=== PATIENT | female | born 1940 | race Caucasian/White ===

== ENCOUNTER 2020-12-03 08:51 | Outpatient (RCR) | payer MEDICARE, SELFPAY | END 2020-12-03 23:59 | LOC: IMMUN 08:51 | PROVIDERS: PCP Family Medicine; Referring Provider Family Medicine; Visit Provider Family Medicine | DX: Z23 Encounter for immunization (principal) | CPT/HCPCS: 0011A; 0012A ==

== ENCOUNTER 2022-02-28 10:25 | Emergency (ER) | payer MEDICARE, SELFPAY ==
[2022-02-28 10:26] VITALS: BP 171/99; PULSE 86; RESP 20; TEMP 36.6; O2SAT 100; BMI 21.7
--- NOTE | 2022-02-28 10:40 | EKG12_ITS ---
Test Reason : DIZZINESS Blood Pressure : / mmHG Vent. Rate : 072 BPM Atrial Rate : 072 BPM P-R Int : 174 ms QRS Dur : 092 ms QT Int : 408 ms P-R-T Axes : 064 007 067 degrees QTc Int : 446 ms Normal sinus rhythm Biatrial enlargement Nonspecific T wave abnormality Abnormal ECG Confirmed by BK TROTTER, RUMA ([id number]), scientific publications editor TARAN LEDBETTER ([id number]) on 03/01/2022 9:48:07 AM Referred By: OBED Confirmed By:RUMA BOURGEOIS MD
--- NOTE | 2022-02-28 10:41 | EDS_ITS ---
HPI History of Present Illness Chief Complaint: Dizziness Informant: patient Narrative Narrative: 81-year-old female brought to the emergency department for the evaluation of dizziness. Patient states that yesterday afternoon she laid down on the ground with a blanket by the heat register to get warm. When she went to get up she immediately felt that she was dizzy and that she was spinning. She felt very nauseated and had dry heaves. Patient states she pretty much just went back to bed. She reports that whenever she turns her head from side to side or attempts to get up from a lying position she gets dizzy again. If she is just laying flat and not moving she states she feels better. She has never had vertigo. She notes no ringing in her ears or change in hearing. No vision arm leg or speech symptoms. She denies any headache. [facility] Medical History (Updated 02/28/22 @ 12:[address] Israel Gomez DO) Depression with anxiety Dizziness Hypertension Home Medications amlodipine 5 mg PO DAILY 02/28/22 [History Last Taken Unknown] diazepam 5 mg PO Q8 PRN #10 tab 02/28/22 [Rx Last Taken Unknown] metoprolol tartrate 50 mg PO DAILY 02/28/22 [History Last Taken Unknown] ondansetron 4 mg PO Q6H PRN PRN #10 tab 02/28/22 [Rx Last Taken Unknown] paroxetine HCl 30 mg PO DAILY 02/28/22 [History Last Taken Unknown] tolterodine 4 mg PO DAILY 02/28/22 [History Last Taken Unknown] Allergy/AdvReac Type Severity Reaction Status Date / Time ibuprofen [From Motrin] Allergy Hives Verified 02/28/22 10:28 NSAIDS (Non-Steroidal Allergy Hives Verified 02/28/22 10:28 Anti-Inflamma Social History (Updated 02/28/22 @ 10:[address] Israel Gomez DO) household members: spouse current gender identity: female Smoking Status: Never smoker ROS ROS ED Constitutional Constitutional ED: Denies chills or weight loss Eyes Eyes: Denies change in vision or diplopia ENT ENT ED: Denies ear pain, rhinorrhea or sore throat Cardiovascular Cardiovascular: Denies chest pain, orthopnea, palpitations or racing heartbeat Respiratory/Chest Respiratory/Chest: Denies cough, dyspnea or orthopnea Gastrointestinal Gastrointestinal: Reports nausea; Denies abdominal pain, diarrhea or vomiting Genitourinary Genitourinary ED: Denies dysuria, hematuria or urinary frequency Musculoskeletal Musculoskeletal: Denies arthralgias or myalgias Integumentary Denies abscess or rash Neurologic Neurologic: Reports other Details: Dizziness ; Denies headache(s) or weakness Psychiatric Psychiatric: Denies anxiety, depression, suicidal ideation or suicidal thoughts Endocrine Endocrinology: Denies polydipsia, polyphagia or polyuria Allergic/Immunologic Allergic/Immunologic ED: Denies mouth swelling, tongue swelling or urticaria EXAM Physical Exam Const Vital Signs: 02/28/22 10:26 Temperature 97.9 F Temperature Source Temporal Pulse Rate 86 Respiratory Rate 20 H Blood Pressure 171/99 H Blood Pressure Mean 123 Pulse Ox 100 Oxygen Delivery Method Room Air Positive well nourished and well developed General Appearance ED: well developed HEENT Reports normocephalic, head/scalp atraumatic, TM's clear and moist mucous membranes Negative for trauma Tympanic Membrane ED: Yes TM's clear Eyes PERRL and EOMs intact bilaterally Neck no lymphadenopathy, supple and no JVD Resp normal respiratory effort and clear to auscultation bilaterally Cardio regular rate, regular rhythm and no murmurs GI normal to inspection, nondistended, normoactive bowel sounds and non-tender Palpation: soft Back/Spine no CVA tenderness and normal ROM Extremity normal to inspection General Extremety ED: Negative for edema General Extremity: Negative for edema Neuro oriented x3 and CN's II-XII intact bilaterally Neuro Narrative: I appreciate no nystagmus. The patient is not symptomatic when turning her head right or left. She is symptomatic when she attempts to sit up. Sensorium / Orientation: alert Motor Exam: strength 5/5 throughout Psych mental status grossly normal Mood & Affect: Negative for depressed or tearful Skin no rashes or lesions noted and no wounds MDM MDM MDM Narrative Medical decision making narrative: CBC CMP showed a creatinine 1.12. CT of the brain is read as no acute. Patient received Zofran fluids and Valium. Repeat examination finds the patient to be asymptomatic. She is able to ambulate without any difficulties. Patient at this point will be discharged home Lab Data Attestation: I reviewed the patient's lab results. Labs: Laboratory Results - last 24 hr 02/28/22 02/28/22 10:55 10:55 WBC 10.3 RBC 4.78 Hgb 14.6 Hct 44.2 MCV 92.5 MCH 30.5 MCHC 33.0 RDW Std Deviation 45.1 H RDW Coeff of Mariya 13.2 Plt Count 279 MPV 10.4 Immature Gran % (Auto) 0.400 Neut % (Auto) 84.7 H Lymph % (Auto) 9.8 L Elbert % (Auto) 4.4 Eos % (Auto) 0.3 Baso % (Auto) 0.4 Absolute Neuts (auto) 8.7 H Absolute Lymphs (auto) 1.01 Nucleated RBC % 0 Sodium 139 Potassium 3.8 Chloride 105 Carbon Dioxide 26.0 Anion Gap 8 BUN 18 Creatinine 1.12 H Estim Creat Clear Calc 35.63 Est GFR (MDRD) Af Amer 60 Est GFR (MDRD) Non-Af 49 L BUN/Creatinine Ratio 16.1 Glucose 134 H Calcium 9.7 Total Bilirubin 0.50 AST 19 ALT 16 Alkaline Phosphatase 61 Total Protein 7.4 Albumin 3.3 Globulin 4.1 Albumin/Globulin Ratio 0.8 L Radiography Diagnostic Testing: Clinical Impression(s) from Imaging Studies Brain CT 02/28/22 11:52 IMPRESSION: Chronic involutional changes of the brain. Electronically Signed: Ryan Machado MD at 12:14 EDT , EKG Initial EKG: Attestation: I personally reviewed and interpreted this EKG as follows: Comments: Normal sinus rhythm with a ventricular rate of 72 bpm Discharge Plan Triage Chief Complaint: Dizziness ED Provider: Israel Gomez Dx/Rx/DC Orders Clinical Impression: Vertigo Instructions: ED BPV Vertigo Prescriptions: New ondansetron [ondansetron] 4 MG tablet 4 mg PO Q6H PRN PRN (Reason: Nausea) Qty: 10 RF: 0 diazepam [diazepam] 5 MG tablet 5 mg PO Q8 PRN (Reason: Vertigo) Qty: 10 RF: 0 No Action tolterodine 4 mg capsule,extended release 24hr 4 mg PO DAILY RF: 0 amlodipine 5 mg tablet 5 mg PO DAILY RF: 0 paroxetine HCl 30 mg tablet 30 mg PO DAILY RF: 0 metoprolol tartrate 50 mg tablet 50 mg PO DAILY RF: 0 Primary Care Provider: Mat Guevara Referrals: Mat Guevara MD [Primary Care Provider] - As Needed Disposition Disposition: Home, Self Care
[2022-02-28] MEDS: diazePAM 5 MG Tablet PO (10:54)
[2022-02-28] MEDS: 0.9% Normal Saline 1,000 ML 1000 ML IV (10:54)
[2022-02-28] MEDS: Ondansetron 4 MG/2 ML Vial IV (10:54)
[2022-02-28 11:02] LABS: Absolute Lymphocyte Count 1.01 X10^3/uL (0.83-4.51); Absolute Neutrophil Count 8.7 X10^3/uL (2.0-7.7); Basophil# 0.04 X10^3/uL; Basophil% 0.4 % (0-1); Eosinophil# 0.03 X10^3/uL; Eosinophils% 0.3 % (0-5); Hematocrit 44.2 % (37-47); Hemoglobin 14.6 g/dL (12.0-15.0); Lymphocyte # 1.01 X10^3/ul (0.83-4.51); Lymphocyte % 9.8 % (19-41); Mean Corpuscular Hgb 30.5 pg (27.0-32.0); Mean Corpuscular Volume 92.5 fL (81-99); Mean Platelet Vol. 10.4 fl (6.2-12.0); Monocyte# 0.45 X10^3/uL; Monocyte% 4.4 % (0-10); NRBC Flagged by Analyzer 0 % (0-5); Neutrophil # 8.73 X10^3/uL (2.7-7.7); Neutrophil % 84.7 % (47-70); Platelet Count 279 K/mm3 (150-450); RBC Distribution Width CV 13.2 % (11.6-14.6); RBC Distribution Width SD 45.1 fl (35.1-43.9); Red Blood Count 4.78 M/mm3 (4.2-5.4); White Blood Count 10.3 K/mm3 (4.4-11.0)
[2022-02-28 11:18] LABS: ALB/GLOB Ratio 0.8 RATIO (0.9-2.4); AST(SGOT) 19 U/L (15-37); Alanine Aminotransfer ALT/SGPT 16 U/L (13-56); Albumin, Serum 3.3 g/dL (3.2-5.0); Alkaline Phosphatase 61 U/L (45-117); Anion Gap 8 (5-15); BUN 18 mg/dL (7-18); BUN/Creat Ratio 16.1 RATIO (10-20); Calcium,Total 9.7 mg/dL (8.5-10.1); Chloride 105 mmol/L (98-107); Creatinine, Serum 1.12 mg/dL (0.55-1.02); EST Glomerular Filtration Rate 49 mL/min (>60); Est Glom Filt Rate - Afr Amer 60 mL/min (>60); Estimated Creatinine Clearance 35.63 ml/min; Globulin 4.1 g/dL (2.2-4.2); Glucose 134 mg/dL (74-106); Potassium 3.8 mmol/L (3.5-5.1); Protein, Total 7.4 g/dL (6.4-8.2); Sodium Level 139 mmol/L (136-145)
--- NOTE | 2022-02-28 11:52 | CT_ITS ---
STUDY: CT BRAIN WITHOUT CONTRAST REASON FOR EXAM: Female, 81 years old. Vertigo RADIATION DOSAGE (If Supplied By Facility): CTDIvol = ( 44.99 ) mGy, DLP = ( 796.11 ) mGycm TECHNIQUE: Transaxial CT imaging of the brain was performed without administration of intravenous contrast material. Individualized dose optimization techniques were used for this CT. COMPARISON: No relevant priors. FINDINGS: Normal soft tissue structures. Normal calvarium. There is mild cerebral atrophy with widening of the extra-axial spaces and ventricular dilatation. There are areas of decreased attenuation within the white matter tracts of the supratentorial brain, consistent with microvascular disease changes. Normal basal ganglia and thalami. Normal brainstem. Normal cerebellum. There is no intracranial hemorrhage. There are no findings of an acute ischemic infarction. Normal visualized paranasal sinuses. CT/Brain/Head without Contrast IMPRESSION: Chronic involutional changes of the brain. Electronically Signed: Ryan Machado MD at 12:14 EDT ,
[2022-02-28 12:56] VITALS: BP 147/79; PULSE 88; RESP 16; O2SAT 98
--- NOTE | 2022-03-06 14:17 | CASEMGMT ---
ED follow-up phone call: SHIRA BUSTAMANTE completed follow-up phone call at this time. Patient states she is doing much better. No questions or concerns regarding discharge instructions. Patient was able to fill prescriptions without any issues. Patient states she has appt with PCP at the end of the month. SHIRA BUSTAMANTE encouraged jon to call PCP office to update on ED visit and if they would like to see her sooner. Patient voiced understanding. Patient had no further questions or concerns at this time.
== END 2022-02-28 13:07 | disposition home or self-care (01) ==
PROVIDERS: Emergency Provider Emergency Medicine; PCP Family Medicine; Visit Provider Emergency Medicine
DX: R42 Dizziness and giddiness (principal); I10 Essential (primary) hypertension; Z79.899 Other long term (current) drug therapy
CPT/HCPCS: 70450; 80053; 85025; 93005; 96361; 96374; 99284; J7030; J2405